=== PATIENT | male | born 1950 | race African-American/Black ===

== ENCOUNTER 2017-09-20 18:29 | Observation (INO) | payer MEDICARE ==
[2017-09-20 21:03] LABS: Troponin I 0.015 ng/mL (< 0.028)
[2017-09-20 23:47] LABS: Troponin I Less than 0.010 ng/mL (< 0.028)
[2017-09-20] MEDS ORDERED: Guaifenesin DM 100-10/5 ML UDCUP PO PRN (23:57)
[2017-09-20] MEDS ORDERED: Acetaminophen 325 MG TAB PO PRN (23:57)
[2017-09-20] MEDS ORDERED: Mag-Al 1200 mg/1200 mg/30 ML UDCUP PO PRN (23:57)
[2017-09-21 01:44] VITALS: BMI 29.5
[2017-09-21 05:51] LABS: Anion Gap 10 mmol/L (10-20); BUN (Urea Nitrogen) 21 mg/dL (8.4-25.7); Calc. Creatinine Clearance 120 mL/min (70-130); Calcium 9.1 mg/dL (7.8-10.44); Carbon Dioxide 27 mmol/L (23-31); Cardiac Risk 5.8 (Less than 4.5); Chloride 104 mmol/L (98-107); Cholesterol 184 mg/dl (< 200 Desired); Estimated GFR-MDRD Greater than 90; Glucose 220 mg/dL (80-115); HDL Cholesterol 32 mg/dL (>60 Neg Risk); LDL Cholesterol, Calculated 127 mg/dL; Potassium 3.7 mmol/L (3.5-5.1); Sodium 137 mmol/L (136-145); Triglycerides 126 mg/dL (Less than 150)
--- NOTE | 2017-09-21 06:29 | HP ---
REASON FOR ADMISSION: TIA. HISTORY OF PRESENTING ILLNESS: Please note I have seen and examined the patient on 09/20/2017. The patient gives history of working his hay on his tractor when he developed left arm tingling and numbness over left side of his lips His left upper extremity numbness and tingling was more to the pinky and the ring finger side. This lasted for nearly two minutes. He felt weak and he thought it was too hot and went inside his house and told his . The patient was in turn brought to the emergency room to rule out CVA. On arrival in [facility], the patient's NIH score was 0. He is back at his normal self. He was transferred here for higher level of care. PAST MEDICAL AND SURGICAL HISTORY: Diabetes mellitus, type 2; dyslipidemia; hypertension. No prior surgical history. CURRENT MEDICATIONS: Metformin 1000 mg twice daily, Levemir 21 units subcutaneously daily, lisinopril daily, Zocor daily. ALLERGIES: No known drug allergies. PERSONAL HISTORY: Does not abuse alcohol or drugs. No history of smoking. Lives with his . FAMILY HISTORY: Mother at the age of 73 years, she has had history of CVA and diabetes. Father at the age of 85 years, he has had diabetes and renal failure. REVIEW OF SYSTEMS: The following complete review of systems was negative, unless otherwise mentioned in the HPI or below: Constitutional: Weight loss or gain, ability to conduct usual activities. Skin: Rash, itching. Eyes: Double vision, pain. ENT/Mouth: Nose bleeding, neck stiffness, pain, tenderness. Cardiovascular: Palpitations, dyspnea on exertion, orthopnea. Respiratory: Shortness of breath, wheezing, cough, hemoptysis, fever or night sweats. Gastrointestinal: Poor appetite, abdominal pain, heartburn, nausea, vomiting, constipation, or diarrhea. Genitourinary: Urgency, frequency, dysuria, nocturia. Musculoskeletal: Pain, swelling. Neurologic/Psychiatric: Anxiety, depression. Allergy/Immunologic: Skin rash, bleeding tendency. PHYSICAL EXAMINATION: GENERAL: The patient is a 66-year-old male, who is currently not in any acute distress. VITAL SIGNS: Blood pressure 138/66, pulse 80 per minute, respiratory rate 20 per minute, temperature 97.8 degrees Fahrenheit, saturating 95% on room air. NECK: Supple, no elevated JVD. HEENT: Eyes: Extraocular muscles intact. Pupils are reacting to light. Oral cavity mucous membranes are moist. No exudates or congestion. CARDIOVASCULAR SYSTEM: S1, S2 heard. Regular rhythm. RESPIRATORY SYSTEM: Air entry 1+ bilateral. No rales or rhonchi. ABDOMEN: Soft, bowel sounds heard. No tenderness, rigidity or guarding. EXTREMITIES: No peripheral edema or calf tenderness. VASCULAR SYSTEM: Peripheral pulses 1+ bilateral, no ischemic ulcerations or gangrene. CENTRAL NERVOUS SYSTEM: No gross focal deficits seen. The patient is alert, awake, and oriented well. Motor system strength is 5/5 in all four extremities. Reflexes are 2+ bilateral. Cerebellar signs are intact. Gait was not tested. PSYCHIATRIC SYSTEM: The patient's mood is euthymic. No hallucinations or delusions. LABORATORY AND X-RAY FINDINGS: Electrolytes are stable. BUN 21, creatinine 0.8 , serum glucose 220. Troponin x2 is negative. H&H 13 and 39, platelet count is 236, white count of 7, MCV is 81 with 70% neutrophils. Liver enzymes are within normal limits. Albumin is 4.4. Chest x-ray done shows no acute cardiopulmonary abnormalities. CT brain, no acute intracranial abnormalities. CLINICAL IMPRESSION AND PLAN: The patient will be under observation on the stroke unit for left-sided numbness and tingling to rule out transient ischemic attack. His symptoms are completely resolved at present. We will follow transient ischemic attack evidence based protocol. We will continue him on full dose aspirin, Zocor, small dose of lisinopril, Lantus at 10 units twice daily. We will obtain MRI without contrast and echo with 2D Doppler for LV function. Echo is in view of patient's symptoms being on the left side with multiple risk factors for acute coronary syndrome as well. The patient is diabetic and could have atypical symptoms too. His troponin x2 is negative for now. MTDD
[2017-09-21] MEDS ORDERED: HumaLOG 300 UNITS/3 ML VIAL SC PRN ×2 (06:55)
[2017-09-21] MEDS ORDERED: Dextrose 5% in Water 1,000 ML IV PRN (06:55)
[2017-09-21] MEDS ORDERED: Dextrose 50% Abboject 50 ML SYRINGE SLOW IVP PRN (06:55)
[2017-09-21 08:52] LABS: Hemoglobin 13.3 g/dL (14.0-18.0); Mean Corpuscular HGB CONC 33.4 g/dL (32.0-36.0); Mean Corpuscular Hemoglobin 30.1 pg (27.0-31.0); Mean Corpuscular Volume 90.3 fl (80.0-94.0); Mean Platelet Volume 8.6 fL (7.4-10.4); Platelet Count 239 thou/uL (130-400); RBC Distribution Width 13.2 % (11.5-14.5); White Blood Cell (WBC) Count 5.2 thou/uL (4.8-10.8)
[2017-09-21] MEDS ORDERED: Lisinopril 5 MG TAB PO SCH (09:00)
[2017-09-21] MEDS ORDERED: Aspirin 325 mg Enteric Coated Tablet PO SCH (09:00)
[2017-09-21] MEDS ORDERED: Famotidine 20 MG TAB PO SCH (09:00)
[2017-09-21] MEDS ORDERED: Enoxaparin Sodium 40 MG/0.4 ML SYRINGE SC SCH (09:00)
[2017-09-21] MEDS ORDERED: Docusate 100 MG CAP PO SCH (09:00)
[2017-09-21] MEDS ORDERED: Insulin Glargine 10 UNITS in Pre-Filled Syringe 1 EACH SC SCH (09:00)
--- NOTE | 2017-09-21 10:20 | PDOC.PN ---
- Subjective Encounter Start Date: 09/21/17 Encounter Start Time: 10:25 patient seen and examined following TIA/CVA yesterday which has completely resolved. CT heas w contrast negative for acute findings. He has no complaints today and no acute events overnight. Imaging and TTE ordered and pending. - Objective Resuscitation Status: Resuscitation Status FULL:Full Resuscitation Vital Signs & Weight: Vital Signs (12 hours) Temp Pulse Resp BP Pulse Ox 09/21/17 08:25 68 09/21/17 08:00 97.3 F L 68 16 09/21/17 07:43 97.3 F L 68 16 155/76 H 97 09/21/17 04:01 97.6 F 86 18 143/82 H 97 09/21/17 00:00 97.7 F 92 18 131/80 96 I&O: 09/20/17 09/21/17 09/22/17 06:59 06:59 06:59 Intake Total 500 Balance 500 Result Diagrams: 09/21/17 04:51 09/21/17 04:51 Phys Exam - Physical Examination Constitutional: NAD HEENT: PERRLA, moist MMs, sclera anicteric Neck: no JVD, supple, full ROM Respiratory: no wheezing, no rales, no rhonchi, clear to auscultation bilateral Cardiovascular: RRR, no significant murmur, no rub Gastrointestinal: soft, non-tender, no distention, positive bowel sounds Musculoskeletal: no edema, pulses present Neurological: non-focal, normal sensation, moves all 4 limbs Strength 5/5 in all extremities. Tone and reflexes normal. Psychiatric: normal affect, A&O x 3 Skin: no rash, normal turgor Dx/Plan (1) CVA (cerebral vascular accident) Code(s): I63.9 - CEREBRAL INFARCTION, UNSPECIFIED Status: Acute Qualifiers: CVA mechanism: unspecified Qualified Code(s): I63.9 - Cerebral infarction, unspecified Comment: Resolved. No residual deficits. Started on secondary prevention. TTE and carotid US pending. (2) HTN (hypertension) Code(s): I10 - ESSENTIAL (PRIMARY) HYPERTENSION Status: Chronic Qualifiers: Hypertension type: essential hypertension Qualified Code(s): I10 - Essential (primary) hypertension Comment: Fairly well controlled. (3) HLD (hyperlipidemia) Code(s): E78.5 - HYPERLIPIDEMIA, UNSPECIFIED Status: Acute Qualifiers: Hyperlipidemia type: mixed hyperlipidemia Qualified Code(s): E78.2 - Mixed hyperlipidemia (4) DM2 (diabetes mellitus, type 2) Status: Chronic Qualifiers: Diabetes mellitus bed bug exterminator insulin use: without bed bug exterminator use Diabetes mellitus complication status: without complication Qualified Code(s): E11.9 - Type 2 diabetes mellitus without complications Comment: Controlled. Will obtain A1c. Continue SSI. - Plan cont current plan of care, plan discussed w/ family, PT/OT, out of bed/ambulate , DVT proph w/lovenox Obtain TTE and Carotid doppler. PT/OT evaluation/[employer] Unable to get MRI 2/2 metal implants. Will discharge if all tests return negative. Needs secondary prevention w ASA and Statin and f/u w neurology. Review of Systems - Medications/Allergies Allergies/Adverse Reactions: Allergies Allergy/AdvReac Type Severity Reaction Status Date / Time No Known Drug Allergies Allergy Unverified 09/21/17 00:03 Medications: Current Medications Acetaminophen (Tylenol) 650 mg PO Q4H PRN PRN Reason: Headache/Fever or Pain Al Hydroxide/Mg Hydroxide (Maalox) 30 ml PO Q6H PRN PRN Reason: Heartburn or Indigestion Aspirin (Ecotrin) 325 mg PO DAILY [facility] Last Admin: 09/21/17 08:25 Dose: 325 mg Atorvastatin Calcium (Lipitor) 20 mg PO HS [facility] Dextrose/Water (Dextrose 50%) 25 gm SLOW IVP PRN PRN PRN Reason: Hypoglycemia Docusate Sodium (Colace) 100 mg PO BID [facility] Last Admin: 09/21/17 08:27 Dose: 100 mg Enoxaparin Sodium (Lovenox) 40 mg SC 0900 [facility] Last Admin: 09/21/17 08:24 Dose: 40 mg Famotidine (Pepcid) 20 mg PO BID [facility] Last Admin: 09/21/17 08:24 Dose: 20 mg Glucagon (Glucagon) 1 mg IM PRN PRN PRN Reason: Hypoglycemia Guaifenesin/Dextromethorphan (Robitussin Dm) 15 ml PO Q4H PRN PRN Reason: Cough Insulin Glargine 10 units/ (Miscellaneous Medication) 0.1 mls @ 0 mls/hr SC BID [facility] Last Admin: 09/21/17 08:25 Dose: 0.1 mls Dextrose/Water (D5w) 1,000 mls @ 0 mls/hr IV .Q0M PRN; As Directed PRN Reason: Hypoglycemia Insulin Human Lispro (Humalog) 0 units SC .BEDTIME SLIDING SC PRN PRN Reason: Bedtime Correctional Scale Insulin Human Lispro (Humalog) 0 units SC .MILD SLIDING SCALE PRN PRN Reason: Mild Correctional Scale Lisinopril (Zestril) 5 mg PO DAILY [facility] Last Admin: 09/21/17 08:25 Dose: 5 mg
[2017-09-21 10:58] VITALS: TEMP 97.7
[2017-09-21 11:08] LABS: Band 1 % (5-11); Eosinophils 1 % (0-10); Lymphocytes 42 % (21-51); MDiff Complete? YES; Monocytes 2 % (0-10); Myelocyte 1 % (0-0); Neutrophil 45 % (42-75); PLT Morphology Comment Appears Adequate; RBC Morphology Normal; Reactive Lymphocytes 7 % (0-10)
[2017-09-21 11:12] LABS: Hemoglobin A1c 6.7 % (4.0-6.0)
--- NOTE | 2017-09-21 13:06 | ULT ---
BILATERAL CAROTID DUPLEX ULTRASOUND: DATE: 09/21/17 HISTORY: TIA. TECHNIQUE: Hurd scale ultrasound with color flow and spectral Doppler imaging of the extracranial carotid artery systems performed bilaterally. FINDINGS: There is plaque formation on either side. The peak systolic velocity in the right ICA measures 95 cm/second with an end-diastolic velocity of 2 5 cm/second and a systolic ratio of 0.85. The peak systolic velocity in the left ICA measures 89 cm/second with an end-diastolic velocity of 41 cm/second and a systolic ratio of 0.75. Flow in both vertebral arteries remains antegrade. IMPRESSION: No evidence of hemodynamically significant stenosis. POS: [facility]
[2017-09-21 15:27] VITALS: BP 135/67
[2017-09-21] MEDS ORDERED: Atorvastatin Calcium 20 MG TAB PO SCH (21:00)
--- NOTE | 2017-09-22 20:10 | DIS ---
DATE OF ADMISSION: 09/20/2017 DATE OF DISCHARGE: 09/21/2017 DISCHARGE DIAGNOSES: Transient ischemic attack/cerebrovascular accident, hypertension, type 2 diabet es mellitus, and hyperlipidemia. HISTORY OF PRESENT ILLNESS/HOSPITAL COURSE: Mr. Shikha Hensley is a 66-year-old male with abov e medical history, who presented to the emergency room after he sustained tingling or numbness on his left side. He reports he was working on that day on his tractor when he developed left arm tingling and numbness over left side of his lips. He also had left upper extremity numbness and tingling fro m the pinky to the ring finger on that side. This lasted for about two minutes. He also felt weak a nd went inside the house. EMS was then called and he was brought to the emergency room to rule out C [facility]. On arrival at [facility], his NIH score was 0 and he was back to his normal self, presented to [facility] for [facility] care. CT brain showed no acute abnormalities. Patient was unable to obtain an MRI due to him having a metal implant in his head, so he had a carotid Doppler ultrasoun ds done, which was normal and also a TTE, which showed EF of 50% to 55% with mild mitral regurgitatio n and mild tricuspid regurgitation. He was discharged on aspirin, atorvastatin, and lisinopril and i s to follow up with the primary care physician within 1 week of discharge. DISCHARGE MEDICATIONS: Aspirin 325 mg daily, Atorvastatin 20 mg at bedtime. Lisinopril 5 mg daily. PHYSICAL EXAMINATION: He was seen and examined on the day of discharge. For details, refer to today 's history and physical. LABORATORY DATA: WBC 5.2, hemoglobin 13.3, platelet count 293. Sodium 137, potassium 3.7, chloride 104, carbon dioxide 27, anion gap 10, BUN 21, creatinine of 0.86, glucose 220, triglycerides 123, cho lesterol 184, LDL 127, HDL 32. Heart disease risk ratio 5.8. IMAGING: Carotid Doppler, echocardiogram, and CT brain without contrast as stated in the HPI. CONSULTS: None. CONDITION ON DISCHARGE: Stable and improved. PROCEDURES: None. DIET: Heart healthy, diabetic. CARE GOALS: To follow up with his primary care physician within 10 days of discharge. ACTIVITY: To resume as tolerated. DISCHARGE TIME: 65 minutes including chart review and documentation.
== END 2017-09-21 19:02 | disposition home or self-care (01) ==
LOC: ERS 18:29 → 2SE 20:59
PROVIDERS: ADMIT Emergency Medicine; ATTEND Emergency Medicine
DX: R20.0 Anesthesia of skin (principal); R20.2 Paresthesia of skin; I10 Essential (primary) hypertension; E78.5 Hyperlipidemia, unspecified; E11.9 Type 2 diabetes mellitus without complications; Z79.4 Long term (current) use of insulin; Z79.899 Other long term (current) drug therapy
CPT/HCPCS: 80048; 80061; 82962; 83036; 84484; 85025; 93005; 93306; 93880; 96372; 97139; 99285; G0378; 36415; 36416; J1650

== ENCOUNTER 2019-05-15 13:31 | Outpatient (CLI) | payer MEDICARE ==
--- NOTE | 2019-05-17 20:13 | ULT ---
LOWER EXTREMITY ARTERIAL EVALUATION 05/15/19 Lower extremity arterial evaluation was performed in a patient with skin changes in his lower extremi ties with claudication documented in the right leg with a smoking history, diabetes, hypertension, an d dyslipidemia. Examination of the right leg revealed an abnormal femoral waveform with mildly diminished waveform at the posterior tibial and dorsalis pedis level. Ankle-arm index calculated to 1.1 and toe-brachial in dex preserved at 0.72. Left lower extremity demonstrated preserved waveforms at all levels with an ankle-arm index of 1.21 a nd toe-brachial index that was normal. ASSESSMENT: This study is suggestive of right sided iliac disease and could be consistent with right lower extrem ity claudication although resting ankle-arm index is normal, waveforms are abnormal.
== END 2019-05-15 13:32 | disposition home or self-care (01) ==
LOC: ULT 13:31
PROVIDERS: ATTEND Family Medicine
DX: I73.9 Peripheral vascular disease, unspecified (principal)
CPT/HCPCS: 93922

== ENCOUNTER 2019-07-18 07:25 | Outpatient (CLI) | payer MEDICARE ==
--- NOTE | 2019-07-18 08:05 | RAD ---
SINGLE CACERES VIEW OF THE SKULL: COMPARISON: None. HISTORY: MRI clearance. FINDINGS: A single Water's view of the skull shows no evidence of radiopaque foreign body within the orbits. T he paranasal sinuses are well aerated. IMPRESSION: No evidence o radiopaque foreign body. POS: [facility]
--- NOTE | 2019-07-18 09:47 | MRI ---
MRI LUMBAR SPINE WITHOUT CONTRAST: Date: 07/18/2019 INDICATION: Lumbar spondylosis. Low back pain. No comparison. FINDINGS: Lumbar vertebra maintain normal height and alignment. Degenerative disc changes are seen at all level s with loss of disc space and degenerative disc and end plate changes. Degenerative osteophytes seen at all lumbar vertebra. Findings at each disc space are described. T12-L1: Mild disc bulge. Facet hypertrophy. No central canal or foraminal stenosis. L1-2: Diffuse disc bulge flattens the thecal sac. Moderate facet hypertrophy. Mild central canal mike nosis. No significant foraminal stenosis. L2-3: Mild diffuse disc bulge. Moderate facet hypertrophy. Posterior epidural fat. These changes res ult in mild central canal stenosis. Mild foraminal narrowing bilaterally. L3-4: Broad based disc bulge is prominent. Posterior epidural fat is present. Moderate facet hypertr ophy. These changes result in moderate to severe central canal stenosis. Bilateral foraminal narrowin g secondary to disc bulge and facet hypertrophy. L4-5: Broad based disc bulge. Prominent facet and ligamentous hypertrophy. Posterior epidural lipoma tosis. These changes result in severe central canal stenosis. Mild bilateral foraminal stenosis. L5-S1: Congenitally smaller thecal sac. There is epidural lipomatosis compressing the thecal sac. Mo derate facet hypertrophy. Mild to moderate bilateral foraminal stenosis secondary to facet hypertroph y. IMPRESSION: Multilevel degenerative disc changes. Central canal stenosis at multiple levels which is exacerbated by epidural lipomatosis as noted above. POS: [facility]
== END 2019-07-18 07:26 | disposition home or self-care (01) ==
LOC: BICMRI 07:25
PROVIDERS: ATTEND Family Medicine
DX: M48.061 Spinal stenosis, lumbar region without neurogenic claudication (principal); M51.36 Other intervertebral disc degeneration, lumbar region; M47.816 Spondylosis without myelopathy or radiculopathy, lumbar region
CPT/HCPCS: 70210; 72148